=== PATIENT | female | born 1965 | race Caucasian/White ===

== ENCOUNTER 2018-03-05 14:07 | Emergency (ER) | payer OTHER ==
[~2018-03-05] VITALS: Ht 157.5 cm; Wt 73.5 kg
[2018-03-05 14:17] VITALS: Ht 157.5 cm; Wt 73.5 kg
[2018-03-05 14:40] LABS: BASOPHIL % 0.2 % (0-2); PLATELET COUNT 262 x10^3mcL (130-400); RED CELL DISTRIBUTION WIDTH 14.1 % (11.5-14.5)
[2018-03-05 14:48] LABS: CALCIUM 8.4 mg/dL (8.5-10.1); CARBON DIOXIDE 28.1 mmol/L (21-32); CHLORIDE SERUM 105 mmol/L (98-107); CREATININE SERUM 0.6 mg/dL (0.6-1.0); GFR1 > 60 mL/min; GLUCOSE SERUM 91 mg/dL (74-106); POTASSIUM SERUM 3.9 mmol/L (3.5-5.1); SODIUM SERUM 140 mmol/L (136-145)
[2018-03-05 14:54] LABS: ALBUMIN 3.6 g/dL (3.4-5.0); ALKALINE PHOSPHATASE 156 U/L (46-116); ALT/SGPT 79 U/L (14-59); AST/SGOT 28 U/L (15-37); BILIRUBIN TOTAL 0.4 mg/dL (0.20-1.00); TOTAL PROTEIN, SERUM 7.8 g/dL (6.4-8.2)
[2018-03-05 16:02] LABS: UA SPECIFIC GRAVITY <=1.005 (1.005-1.035); microscopic required? YES; urine erythrocyte NEGATIVE (NEGATIVE)
[2018-03-05 16:24] VITALS: BP 134/74
== END 2018-03-05 16:24 | disposition home or self-care (01) ==
LOC: ED 14:07
PROVIDERS: Specialist
DX: R07.89 Other chest pain (principal); Z88.5 Allergy status to narcotic agent
CPT/HCPCS: 83880; J1885; J2060; Q0092

== ENCOUNTER 2019-07-13 17:46 | Emergency (ER) | payer OTHER ==
[~2019-07-13] VITALS: Ht 160 cm; Wt 70.3 kg
[2019-07-13 18:05] VITALS: Ht 160 cm; Wt 70.3 kg
[2019-07-13 18:56] LABS: UA SPECIFIC GRAVITY 1.025 (1.005-1.035); microscopic required? YES; urine erythrocyte 2+ (NEGATIVE)
[2019-07-13 18:59] LABS: BASOPHIL % 0.2 % (0-2); PLATELET COUNT 226 x10^3mcL (130-400); RED CELL DISTRIBUTION WIDTH 14.8 % (11.5-14.5)
[2019-07-13 19:17] LABS: CARBON DIOXIDE 29.3 mmol/L (21-32); CHLORIDE SERUM 103 mmol/L (98-107); CREATININE SERUM 0.7 mg/dL (0.6-1.0); GFR1 > 60 mL/min; GLUCOSE SERUM 86 mg/dL (74-106); POTASSIUM SERUM 3.6 mmol/L (3.5-5.1); SODIUM SERUM 141 mmol/L (136-145)
[2019-07-13 19:21] LABS: AMPHETAMINE QUAL UR NONE DETECTED (See below)
[2019-07-13 19:29] LABS: ALBUMIN 4.2 g/dL (3.4-5.0); ALKALINE PHOSPHATASE 120 U/L (46-116); ALT/SGPT 47 U/L (14-59); AST/SGOT 16 U/L (15-37); BILIRUBIN TOTAL 0.44 mg/dL (0.20-1.00); CHOLESTEROL 200 mg/dL (<200); HDL CHOLESTEROL 56 mg/dL (40-60); LIPASE 94 IU/L (73-393); T4(THYROXINE) 8.7 ug/dL (4.7-13.3)
[2019-07-13 19:31] LABS: TOTAL PROTEIN, SERUM 8.4 g/dL (6.4-8.2)
[2019-07-13 21:36] VITALS: BP 123/73
== END 2019-07-13 21:30 | disposition home or self-care (01) ==
LOC: ED 17:46
PROVIDERS: Emergency Medicine
DX: K80.20 Calculus of gallbladder without cholecystitis without obstruction (principal); N39.0 Urinary tract infection, site not specified; F41.9 Anxiety disorder, unspecified; Z88.5 Allergy status to narcotic agent
CPT/HCPCS: 36415; 83880; Q0092; Q0162